=== PATIENT | female | born 1955 | race Caucasian/White ===

== ENCOUNTER → 2019-10-14 13:18 | Outpatient (BNVA) | payer BC, SELFPAY | PROVIDERS: Family Provider Family Medicine; PCP Family Medicine; Visit Provider Internal Medicine Rheumatology | DX: M06.4 Inflammatory polyarthropathy (principal); M15.4 Erosive (osteo)arthritis; Z79.899 Other long term (current) drug therapy | CPT/HCPCS: 36415; 82565; 84450 ==

== ENCOUNTER → 2019-10-14 13:40 | Outpatient (BNVA) | payer BC, SELFPAY | PROVIDERS: Family Provider Family Medicine; PCP Family Medicine; Visit Provider Internal Medicine Rheumatology | DX: M06.4 Inflammatory polyarthropathy (principal); M15.4 Erosive (osteo)arthritis; Z51.81 Encounter for therapeutic drug level monitoring; Z79.899 Other long term (current) drug therapy | CPT/HCPCS: 85025 ==

== ENCOUNTER 2019-11-10 09:51 | Outpatient (RCR) | payer BC, SELFPAY | END 2019-12-08 23:59 | disposition home or self-care (01) | LOC: SPT 09:51 | PROVIDERS: Family Provider Family Medicine; PCP Family Medicine; Referring Provider Family Medicine; Visit Provider Family Medicine | DX: M25.511 Pain in right shoulder (principal); M50.90 Cervical disc disorder, unspecified, unspecified cervical region; M17.9 Osteoarthritis of knee, unspecified | CPT/HCPCS: 97110; 97162 ==

== ENCOUNTER → 2020-02-24 14:03 | Outpatient (BNVA) | payer BC, SELFPAY | PROVIDERS: Family Provider Family Medicine; PCP Family Medicine; Visit Provider Internal Medicine Rheumatology | DX: Z79.899 Other long term (current) drug therapy (principal); M35.3 Polymyalgia rheumatica | CPT/HCPCS: 36415; 80076; 82565; 85025; 85651; 86140 ==

== ENCOUNTER → 2020-03-22 11:28 | Outpatient (BNVA) | payer BC, SELFPAY | PROVIDERS: Family Provider Family Medicine; PCP Family Medicine; Visit Provider Internal Medicine Rheumatology | DX: M19.90 Unspecified osteoarthritis, unspecified site (principal); Z87.39 Personal history of other diseases of the musculoskeletal system and connective tissue; Z79.899 Other long term (current) drug therapy; Z71.89 Other specified counseling | CPT/HCPCS: 99214 ==

== ENCOUNTER 2020-04-08 13:18 | Outpatient (CLI) | payer BC, SELFPAY ==
--- NOTE | 2020-04-08 13:00 | XR_ITS ---
WS: [id number] CHEST 2 VIEWS HISTORY: inflammatory arthritis COMPARISON: 05/18/2016 Lungs: Hyperinflated lungs with no pulmonary mass or pneumonia. Normal vasculature. No pulmonary nodu les. Cardiac size: Normal. Mediastinum/Aorta: Mild atherosclerosis aorta. Bones: Prior RIGHT reverse shoulder prosthesis. Normal appearance the distal clavicles. Mild increase in thoracic kyphosis. XR/XR chest 2V* [id number] IMPRESSION: Mild emphysema with no acute cardiopulmonary disease.
--- NOTE | 2020-04-08 13:30 | XR_ITS ---
WS: [id number] RIGHT KNEE: 3 VIEW(S) TECHNIQUE: AP, oblique(s) and lateral. HISTORY: inflammatory arthritis COMPARISON: 01/29/2018 No fracture or dislocation. Prior RIGHT knee arthroplasty. Prosthesis components are in good position alignment. No joint effusion. No soft tissue abnormality. XR/XR knee RT 3V* [id number] IMPRESSION: Status post RIGHT knee prosthesis with no complications evident.
--- NOTE | 2020-04-08 14:00 | XR_ITS ---
WS: [id number] RIGHT FOOT: 3 VIEW(S) TECHNIQUE: AP, oblique and lateral. HISTORY: inflammatory arthritis COMPARISON: None available. No acute fracture or dislocation. Normal tarsal/metatarsal alignment. No soft tissue abnormality or bone destruction. XR/XR foot RT min 3V* [id number] IMPRESSION: Normal RIGHT foot.
--- NOTE | 2020-04-08 14:30 | XR_ITS ---
WS: [id number] RIGHT HAND: 3 VIEW(S) TECHNIQUE: PA, oblique and lateral. HISTORY: inflammatory arthritis COMPARISON: 05/14/2013 Mixed erosive and productive changes noted involving the second through fourth DIP joints most signif icant. To a lesser extent there is involvement of the PIP joints. Similar changes were seen on the pr ior examination. Bone density is normal. There is mild soft tissue swelling increased soft tissue den sity surrounding the IP joints. XR/XR hand RT min 3V* [id number] IMPRESSION: Mixed bone changes involving the IP joints as described above. Most likely psor iatic arthritis.
--- NOTE | 2020-04-08 15:00 | XR_ITS ---
WS: [id number] LEFT FOOT: 3 VIEW(S) TECHNIQUE: AP, oblique and lateral. HISTORY: inflammatory arthritis COMPARISON: None available. No acute fracture or dislocation. Mild hallux valgus. Prior bunionectomy. Normal tarsal/metatarsal alignment. Hammertoe deformities. No soft tissue abnormality or bone destruction. XR/XR foot LT min 3V* [id number] IMPRESSION: 1. No erosions identified. 2. Mild hallux valgus first metatarsophalangeal joint.
--- NOTE | 2020-04-08 15:30 | XR_ITS ---
WS: [id number] LEFT HAND: 3 VIEW(S) TECHNIQUE: PA, oblique and lateral. HISTORY: inflammatory arthritis COMPARISON: 05/14/2013 No acute fracture or dislocation. Marked narrowing of the DIP joints and to a lesser extent the PIP joints. There is mixed erosive and productive changes. Mild soft tissue swelling and edema. No definite periostitis. Additional osteoart hritis at the first carpometacarpal joint. Narrowing of the distal radioulnar joint. XR/XR hand LT min 3V* [id number] IMPRESSION: 1. Suspect psoriatic arthritis involving the interphalangeal joints. 2. Osteoarthritis at the distal radioulnar joint and first carpometacarpal wily nt.
--- NOTE | 2020-04-08 16:00 | XR_ITS ---
WS: [id number] LEFT KNEE: 3 VIEW(S) TECHNIQUE: AP, oblique(s) and lateral. HISTORY: inflammatory arthritis COMPARISON: 01/29/2018 No fracture or dislocation. Mild narrowing of the lateral compartment. There are small marginal osteophytes. No fractures or loos e body. No erosions. No joint effusion. No soft tissue abnormality. XR/XR knee LT 3V* [id number] IMPRESSION: Mild lateral compartment osteoarthritis.
== END 2020-04-08 13:19 | disposition home or self-care (01) ==
PROVIDERS: Family Provider Family Medicine; PCP Family Medicine; Visit Provider Internal Medicine Rheumatology
DX: M19.90 Unspecified osteoarthritis, unspecified site (principal); M17.12 Unilateral primary osteoarthritis, left knee; M19.042 Primary osteoarthritis, left hand; M20.12 Hallux valgus (acquired), left foot; M25.571 Pain in right ankle and joints of right foot; Z96.651 Presence of right artificial knee joint; J43.8 Other emphysema
CPT/HCPCS: 71046; 73130; 73562; 73630

== ENCOUNTER → 2020-06-14 08:59 | Outpatient (BNVA) | payer BC, SELFPAY | PROVIDERS: Family Provider Family Medicine; PCP Family Medicine; Visit Provider Internal Medicine Rheumatology | DX: Z79.899 Other long term (current) drug therapy (principal) | CPT/HCPCS: 36415; 80076; 82565; 85025; 85651; 86140 ==

== ENCOUNTER → 2020-09-07 10:57 | Outpatient (BNVA) | payer MEDICARE, BC, SELFPAY | PROVIDERS: Family Provider Family Medicine; PCP Family Medicine; Visit Provider Internal Medicine Rheumatology | DX: Z79.899 Other long term (current) drug therapy (principal) | CPT/HCPCS: 36415; 80076; 82565; 85025; 85651; 86140 ==

== ENCOUNTER → 2020-09-12 10:43 | Outpatient (BNVA) | payer MEDICARE, BC, SELFPAY | PROVIDERS: Family Provider Family Medicine; PCP Family Medicine; Visit Provider Internal Medicine Rheumatology | DX: Z87.39 Personal history of other diseases of the musculoskeletal system and connective tissue (principal); M15.9 Polyosteoarthritis, unspecified; M15.4 Erosive (osteo)arthritis; Z79.899 Other long term (current) drug therapy; G56.03 Carpal tunnel syndrome, bilateral upper limbs; M47.22 Other spondylosis with radiculopathy, cervical region; Z87.891 Personal history of nicotine dependence | CPT/HCPCS: 99214 ==

== ENCOUNTER 2020-12-20 15:24 | Outpatient (CLI) | payer MEDICARE, BC, SELFPAY ==
--- NOTE | 2020-12-20 15:40 | CT_ITS ---
WS: [id number] CT SINUSES TECHNIQUE: Noncontrast CT of the paranasal sinuses with coronal and sagittal reformatted images. CLINICAL INFORMATION: CHRONIC SINUSITIS COMPARISON: None. DLP: 354.[address] scans at [facility] use at least one of these dose optimization techniques: automat ed exposure control; mA and/or kV adjustment per patient size (includes targeted exams where dose is matched to clinical indication); or iterative reconstruction. FINDINGS: Mastoid air cells are well aerated. Paranasal sinuses are well aerated. Mild mucosal thickening in th e ethmoid air cells. Frontal sinuses are well aerated. Frontal sinuses are patent. Sphenoid sinuses a re well aerated. Sphenoid ostia are patent. Maxillary sinuses are well aerated. Mild narrowing of the ostiomeatal units bilaterally which are patent. Right to left nasal septal hollis ation measuring 6 mm. Normal sella. Normal craniocervical junction. Mild small vessel changes partial ly visualized intracranial contents. Mild parenchymal volume loss. Normal parapharyngeal fat. CT/CT sinus wo con* [id number] IMPRESSION: 1. Mild right to left nasal septal deviation measuring 6 mm. 2. Mild narrowing of the ostiomeatal units bilaterally which are patent. 3. Mastoid air cells well aerated. 4. Mild mucosal thickening in the ethmoid air cells. 5. Paranasal sinuses are well aerated.
== END 2020-12-20 15:25 | disposition home or self-care (01) ==
LOC: RADWPI 15:31
PROVIDERS: PCP Family Medicine; Visit Provider Family Medicine
DX: J32.9 Chronic sinusitis, unspecified (principal); J34.2 Deviated nasal septum
CPT/HCPCS: 70486

== ENCOUNTER 2020-12-28 14:23 | Outpatient (CLI) | payer MEDICARE, BC, SELFPAY ==
--- NOTE | 2020-12-28 14:35 | CT_ITS ---
WS: [id number] CT HEAD WITH AND WITHOUT CONTRAST HISTORY: ATYPICAL HEADACHE TECHNIQUE: Noncontrast 2.5 mm axial images obtained from the vertex to the skull base. Additional ariadna ging performed at 2.5 mm axial images status post IV contrast. Bone and soft tissue windows are revie wed. All CT scans at [facility] use at least one of these dose optimization techniques: a utomated exposure control; mA and/or kV adjustment per patient size (includes targeted exams where do se is matched to clinical indication); or iterative reconstruction. CONTRAST: Omnipaque 300; 95 mL IV. DLP: 1851.82 mGycm COMPARISON: None available. No acute intracranial hemorrhage, edema or midline shift. No significant atrophy or prior infarcts or chronic microvascular disease. No enhancing mass or vascular malformations identified. Dural venous sinuses are normally enhancing. Visualized [place] is unremarkable. Paranasal sinuses as visualized: Clear. Mastoid air cells: Clear. Calvarium and scalp: Intact. Moderate amount of calcified plaque within the cavernous portions of the intracranial carotid arterie s. CT/CT head wo/w con [id number] IMPRESSION: 1. No acute intracranial hemorrhage or mass. 2. Very minimal cerebral atrophy. 3. Moderate intracranial carotid artery atherosclerosis. 4. No sinus disease.
[2020-12-28 14:56] LABS: Blood Urea Nitrogen 13 mg/dL (8-23); Glomerular Filtration Rate 123.8 mL/min (90-130)
[2020-12-28] MEDS: iohexol 300 mg/mL 100 mL Btl IV (15:02)
== END 2020-12-28 14:24 | disposition home or self-care (01) ==
PROVIDERS: PCP Family Medicine; Visit Provider Family Medicine
DX: R51.9 Headache, unspecified (principal); I65.29 Occlusion and stenosis of unspecified carotid artery
CPT/HCPCS: 70470; 82565; 84520; Q9967

== ENCOUNTER 2021-01-03 11:48 | Outpatient (CLI) | payer MEDICARE, BC, SELFPAY ==
[2021-01-03 12:22] LABS: Basophils % 0.3 %; Eosinophils # 0.1 10^3/uL (0.0-0.8); Eosinophils % 1.5 %; Hematocrit 37.3 % (37.0-47.0); Hemoglobin 12.2 g/dL (11.5-15.3); Lymphocytes # 1.8 10^3/uL (0.8-4.8); Lymphocytes % 27.8 %; Mean Corpuscular HGB Conc 32.7 g/dL (30.0-36.0); Mean Corpuscular Hemoglobin 30.7 pg (28.0-34.0); Mean Platelet Volume 8.3 fL (7.4-10.4); Monocytes # 0.4 10^3/uL (0.2-0.9); Monocytes % 6.4 %; Neutrophils # 4.18 10^3/uL (1.8-7.7); Neutrophils % 63.4 %; Nucleated Red Blood Cells % 0 %; Platelet Count 274 10^3/cmm (130-400); Red Blood Count 3.97 10^6/uL (4.1-5.3); Red Cell Distribution Width 13.2 % (12.1-15.1); White Blood Count 6.6 10^3/uL (4.0-10.0)
[2021-01-03 12:40] LABS: Alanine Aminotransferase 16 U/L (0-33); Albumin Level 4.4 g/dL (3.5-5.2); Alkaline Phosphatase 85 IU/L (35-105); Aspartate Amino Transferase 22 U/L (0-32); C Reactive Protein 4.3 mg/L (0.0-4.9); Glomerular Filtration Rate 123.8 mL/min (90-130); Total Bilirubin 0.2 mg/dL (0.15-1.2); Total Protein 6.4 g/dL (6.6-8.7)
== END 2021-01-03 11:49 ==
LOC: LAB 11:54
PROVIDERS: PCP Family Medicine; Visit Provider Internal Medicine Rheumatology
DX: M19.90 Unspecified osteoarthritis, unspecified site (principal); Z79.899 Other long term (current) drug therapy
CPT/HCPCS: 36415; 80076; 82565; 85025; 86140

== ENCOUNTER → 2021-01-09 13:38 | Outpatient (BNVA) | payer MEDICARE, BC, SELFPAY | PROVIDERS: PCP Family Medicine; Visit Provider Internal Medicine Rheumatology | DX: Z87.39 Personal history of other diseases of the musculoskeletal system and connective tissue (principal); M15.4 Erosive (osteo)arthritis; M47.22 Other spondylosis with radiculopathy, cervical region; Z79.899 Other long term (current) drug therapy; G56.03 Carpal tunnel syndrome, bilateral upper limbs; Z87.891 Personal history of nicotine dependence | CPT/HCPCS: 99214 ==

== ENCOUNTER → 2021-05-03 10:57 | Outpatient (BNVA) | payer MEDICARE, BC, SELFPAY | PROVIDERS: PCP Family Medicine; Visit Provider Internal Medicine Rheumatology | DX: M19.90 Unspecified osteoarthritis, unspecified site (principal); Z71.89 Other specified counseling; Z79.899 Other long term (current) drug therapy | CPT/HCPCS: 36415; 80076; 82565; 85025; 86140 ==

== ENCOUNTER → 2021-05-10 13:29 | Outpatient (BNVA) | payer MEDICARE, BC, SELFPAY | PROVIDERS: PCP Family Medicine; Visit Provider Internal Medicine Rheumatology | DX: Z87.39 Personal history of other diseases of the musculoskeletal system and connective tissue (principal); M15.4 Erosive (osteo)arthritis; M47.22 Other spondylosis with radiculopathy, cervical region; Z79.899 Other long term (current) drug therapy; G56.03 Carpal tunnel syndrome, bilateral upper limbs; Z87.891 Personal history of nicotine dependence | CPT/HCPCS: 99214 ==

== ENCOUNTER → 2021-09-12 12:55 | Outpatient (BNVA) | payer MEDICARE, BC, SELFPAY | PROVIDERS: PCP Family Medicine; Visit Provider Internal Medicine Rheumatology | DX: Z87.39 Personal history of other diseases of the musculoskeletal system and connective tissue (principal); M15.4 Erosive (osteo)arthritis; Z79.899 Other long term (current) drug therapy; G56.03 Carpal tunnel syndrome, bilateral upper limbs; Z96.651 Presence of right artificial knee joint; Z71.89 Other specified counseling; Z87.891 Personal history of nicotine dependence | CPT/HCPCS: 99214 ==

== ENCOUNTER → 2022-03-15 10:27 | Outpatient (BNVA) | payer MEDICARE, BC, SELFPAY | PROVIDERS: PCP Family Medicine; Visit Provider Internal Medicine Rheumatology | DX: M15.4 Erosive (osteo)arthritis (principal); M47.22 Other spondylosis with radiculopathy, cervical region; Z87.39 Personal history of other diseases of the musculoskeletal system and connective tissue; Z79.899 Other long term (current) drug therapy; G56.03 Carpal tunnel syndrome, bilateral upper limbs | CPT/HCPCS: 36415; 80076; 82565; 85025; 86140; 99214 ==

== ENCOUNTER 2022-06-26 11:57 | Outpatient (CLI) | payer MEDICARE, BC, SELFPAY ==
[2022-06-26 13:02] LABS: Basophils % 0.4 %; Eosinophils # 0.2 10^3/uL (0.0-0.8); Hematocrit 37.2 % (37.0-47.0); Hemoglobin 12.4 g/dL (11.5-15.3); Lymphocytes # 2.1 10^3/uL (0.8-4.8); Lymphocytes % 27.5 %; Mean Corpuscular HGB Conc 33.3 g/dL (30.0-36.0); Mean Corpuscular Volume 96.1 fl (81-99); Mean Platelet Volume 8.2 fL (7.4-10.4); Monocytes # 0.4 10^3/uL (0.2-0.9); Monocytes % 5.6 %; Neutrophils # 4.78 10^3/uL (1.8-7.7); Nucleated Red Blood Cells % 0 %; Platelet Count 290 10^3/cmm (130-400); Red Blood Count 3.87 10^6/uL (4.1-5.3); Red Cell Distribution Width 14.1 % (12.1-15.1); White Blood Count 7.5 10^3/uL (4.0-10.0)
[2022-06-26 13:25] LABS: Alanine Aminotransferase 21 U/L (0-33); Albumin Level 4.1 g/dL (3.5-5.2); Alkaline Phosphatase 96 U/L (35-105); Aspartate Amino Transferase 24 U/L (0-32); Globulin 2.8 g/dL (1.3-4.6); Glomerular Filtration Rate 159.7 mL/min (90-130); Total Bilirubin 0.2 mg/dL (0.15-1.2); Total Protein 6.9 g/dL (6.6-8.7)
== END 2022-06-26 11:58 | disposition home or self-care (01) ==
LOC: LAB 12:09
PROVIDERS: PCP Family Medicine; Visit Provider Internal Medicine Rheumatology
DX: M19.90 Unspecified osteoarthritis, unspecified site (principal); Z79.899 Other long term (current) drug therapy
CPT/HCPCS: 36415; 80076; 82565; 85025; 86140

== ENCOUNTER → 2022-07-10 09:57 | Outpatient (BNVA) | payer MEDICARE, BC, SELFPAY | PROVIDERS: PCP Family Medicine; Visit Provider Internal Medicine Rheumatology | DX: M15.4 Erosive (osteo)arthritis (principal); Z87.39 Personal history of other diseases of the musculoskeletal system and connective tissue; Z71.89 Other specified counseling; Z20.822 Contact with and (suspected) exposure to COVID-19; G56.03 Carpal tunnel syndrome, bilateral upper limbs; M47.22 Other spondylosis with radiculopathy, cervical region; Z96.651 Presence of right artificial knee joint; Z96.611 Presence of right artificial shoulder joint | CPT/HCPCS: 99214 ==

== ENCOUNTER 2022-07-26 11:11 | Outpatient (CLI) | payer MEDICARE, BC, SELFPAY ==
--- NOTE | 2022-07-26 11:23 | XR_ITS ---
WS: [id number] Exam: XR lumbar spine min 4V [id number] Date/Time of Exam: 07/26/2022 11:23 AM Reason For Exam: VERTEBROGENIC LOW BACK PAIN No acute fracture or dislocation noted. Slight degenerative anterolisthesis of L5 on S1. Facet arthro alejandra at L4-5 and L5-S1. Mild dextroscoliosis at the thoracolumbar junction. Degenerative disc change at L1-2 with spondylosis of L1 and L2. XR/XR lumbar spine min 4V [id number] IMPRESSION: 1. No acute fracture or malalignment. 2. Slight degenerative anterolisthesis of L5 on S1. 3. Degenerative changes as detailed above. Mild scoliosis.
== END 2022-07-26 11:12 | disposition home or self-care (01) ==
PROVIDERS: PCP Family Medicine; Visit Provider Anesthesiology Pain Medicine
DX: M54.51 Vertebrogenic low back pain (principal); M47.896 Other spondylosis, lumbar region
CPT/HCPCS: 72110

== ENCOUNTER 2022-10-04 12:32 | Outpatient (CLI) | payer MEDICARE, BC, SELFPAY ==
--- NOTE | 2022-10-04 13:00 | MR_ITS ---
WS: [id number] MRI LEFT SHOULDER HISTORY: LEFT shoulder pain for several months. Prior surgery. COMPARISON: None available. TECHNIQUE: Multiplanar sequences of the shoulder joint are submitted. Moderate AC joint narrowing and arthropathy. Loss of the normal articulation with small osteophytes a nd soft tissue hypertrophy. Downsloping acromion with mild subacromial impingement. Small amount of f luid in the subacromial and subdeltoid bursa. No os acromion. Biceps tendon is not identified in the bicipital groove. There is increase fluid in the expected location of the tendon sheath. Moderately high riding humeral head. Severe glenohumeral joint narrowing and osteophytic ridging. Sub chondral cystic changes in the humeral head. Loss of cartilage surrounding the humeral head and gleno id. Moderate-sized joint effusion. Small loose bodies within the joint effusion. There is a large fluid gap in the expected location of the distal supraspinatus tendon. There is a la rge full-thickness tear with retraction of the tendon to the medial humeral head. Moderate atrophy of the supraspinatus muscle. Mild atrophy and edema within the subscapularis muscle. Subscapularis tend on is thickened from tendinopathy. Infraspinatus tendon appears intact. Intrasubstance degeneration in the labrum. Superior anterior labral signal abnormality is very suspic ious for labral tear. Micrometallic artifacts surrounding the shoulder from prior rotator cuff repair. There does appear to be at least one anchor in the humeral head. MR/MR shoulder LT wo con* [id number] IMPRESSION: 1. Complete tear supraspinatus tendon with retraction to the medial humeral he ad. Marked atrophy of the supraspinatus muscle. 2. Prior rotator cuff repair. There is at least one anchor within the humeral head and mitral metallic artifacts surrounding the shoulder. 3. Severe glenohumeral joint arthritis and moderate AC joint arthropathy. 4. High riding humeral head. 5. Marked osteophytic ridging around the humeral head with loss of cartilage. 6. Moderate-sized joint effusion with loose bodies. 7. Biceps tendon not identified in the bicipital groove. Dislocated versus tor n and retracted.
== END 2022-10-04 12:33 | disposition home or self-care (01) ==
LOC: RAD 12:32
PROVIDERS: PCP Family Medicine; Visit Provider Family Medicine
DX: M75.80 Other shoulder lesions, unspecified shoulder (principal)
CPT/HCPCS: 73221

== ENCOUNTER 2022-10-30 09:55 | Outpatient (CLI) | payer MEDICARE, BC, SELFPAY ==
[2022-10-30 10:25] LABS: Basophils % 0.3 %; Eosinophils # 0.2 10^3/uL (0.0-0.8); Eosinophils % 2.6 %; Hematocrit 38.8 % (37.0-47.0); Hemoglobin 12.8 g/dL (11.5-15.3); Lymphocytes # 1.9 10^3/uL (0.8-4.8); Mean Corpuscular Hemoglobin 31.4 pg (28.0-34.0); Mean Corpuscular Volume 95.1 fl (81-99); Mean Platelet Volume 8.2 fL (7.4-10.4); Monocytes # 0.4 10^3/uL (0.2-0.9); Neutrophils # 3.39 10^3/uL (1.8-7.7); Neutrophils % 58.6 %; Nucleated Red Blood Cells % 0 %; Platelet Count 252 10^3/cmm (130-400); Red Blood Count 4.08 10^6/uL (4.1-5.3); Red Cell Distribution Width 13.1 % (12.1-15.1); White Blood Count 5.8 10^3/uL (4.0-10.0)
[2022-10-30 10:44] LABS: Alanine Aminotransferase 17 U/L (0-33); Alkaline Phosphatase 97 U/L (35-105); Aspartate Amino Transferase 22 U/L (0-32); C Reactive Protein 5.4 mg/L (0.0-4.9); Globulin 2.7 g/dL (1.3-4.6); Glomerular Filtration Rate 123.1 mL/min (90-130); Total Bilirubin 0.2 mg/dL (0.15-1.2); Total Protein 6.7 g/dL (6.6-8.7)
== END 2022-10-30 09:56 | disposition home or self-care (01) ==
PROVIDERS: PCP Family Medicine; Visit Provider Internal Medicine Rheumatology
DX: Z87.39 Personal history of other diseases of the musculoskeletal system and connective tissue (principal); Z79.899 Other long term (current) drug therapy; M15.4 Erosive (osteo)arthritis; Z71.89 Other specified counseling; G56.03 Carpal tunnel syndrome, bilateral upper limbs; M47.22 Other spondylosis with radiculopathy, cervical region
CPT/HCPCS: 36415; 80076; 82565; 85025; 86140; 99214

== ENCOUNTER 2023-03-05 16:26 | Outpatient (RCR) | payer MEDICARE, BC, SELFPAY | END 2023-03-08 23:59 | disposition home or self-care (01) | LOC: SPT 16:26 | PROVIDERS: PCP Family Medicine; Visit Provider Orthopaedic Surgery | DX: Z47.89 Encounter for other orthopedic aftercare (principal) | CPT/HCPCS: 97110; 97161 ==

== ENCOUNTER 2023-03-09 06:00 | Outpatient (RCR) | payer MEDICARE, BC, SELFPAY | END 2023-04-08 23:59 | disposition home or self-care (01) | LOC: SPT 06:00 | PROVIDERS: PCP Family Medicine; Visit Provider Orthopaedic Surgery | DX: Z47.89 Encounter for other orthopedic aftercare (principal) | CPT/HCPCS: 97110; 97150 ==

== ENCOUNTER 2023-04-09 06:00 | Outpatient (RCR) | payer MEDICARE, BC, SELFPAY | END 2023-05-09 23:59 | disposition home or self-care (01) | LOC: SPT 06:00 | PROVIDERS: PCP Family Medicine; Visit Provider Orthopaedic Surgery | DX: Z47.1 Aftercare following joint replacement surgery (principal); Z96.612 Presence of left artificial shoulder joint | CPT/HCPCS: 97110 ==

== ENCOUNTER → 2024-03-18 08:14 | Outpatient (BNVA) | payer MEDICARE, BC, SELFPAY | PROVIDERS: PCP Family Medicine; Visit Provider Specialist | DX: M25.561 Pain in right knee (principal); G89.29 Other chronic pain; Z96.651 Presence of right artificial knee joint | CPT/HCPCS: 73560; 73565; 99204 ==

== ENCOUNTER 2024-04-21 07:37 | Outpatient (CLI) | payer MEDICARE, BC, SELFPAY ==
--- NOTE | 2024-04-21 08:00 | NM_ITS ---
WS: [id number] THREE-PHASE BONE SCAN HISTORY: right knee pain COMPARISON: Radiograph 03/18/2024 Patient is is injected with 25.1 mCi Tc99m HDP intravenously. Immediate angiographic phase imaging is performed over the area of concern. Static blood pool imaging also performed. Two-hour whole-body sc intigrams performed in anterior and posterior projections. Additional large field of view imaging sub mitted as necessary. Three-phase bone scan is centered over the knees. On the immediate angiographic imaging there is symm etric uptake surrounding the knees. Photopenic defect noted involving the RIGHT knee secondary to the arthroplasty. Blood pool imaging is normal. No cellulitis. There is mild increased uptake along the RIGHT tibial plateau at the site of the arthroplasty articul ating with the bone. Slightly greater uptake along the medial tibial plateau arthroplasty interface. There is no loosening identified radiographically. Focal intermediate uptake involving the lateral LEFT knee. This corresponds to joint space narrowing and bony sclerosis on the radiograph. Smaller amount of increased uptake along the medial tibial plat eau. Bilateral AC joint arthritis. Normal soft tissue uptake. Facet joint arthritis on the RIGHT at L5-S1. NM/NM bone 3 phase [id number] IMPRESSION: 1. Moderate amount of increased uptake along the interface of the RIGHT tibial plateau with the arthroplasty device. This may indicate mild loosening. There is no osteomyelitis. No loosening is identified radiographically. 2. Moderate osteoarthritis involving the lateral compartment of the LEFT knee.
== END 2024-04-21 07:38 | disposition home or self-care (01) ==
PROVIDERS: PCP Electrodiagnostic Medicine; Visit Provider Specialist
DX: Z96.651 Presence of right artificial knee joint (principal); Z98.890 Other specified postprocedural states; M17.12 Unilateral primary osteoarthritis, left knee
CPT/HCPCS: 78315; A9561

== ENCOUNTER → 2024-05-13 08:11 | Outpatient (BNVA) | payer MEDICARE, BC, SELFPAY | PROVIDERS: PCP Electrodiagnostic Medicine; Visit Provider Specialist | DX: M17.11 Unilateral primary osteoarthritis, right knee (principal); Z96.651 Presence of right artificial knee joint | CPT/HCPCS: 99214 ==

== ENCOUNTER → 2024-06-05 10:15 | Outpatient (BNVA) | payer MEDICARE, BC, SELFPAY | PROVIDERS: PCP Electrodiagnostic Medicine; Visit Provider Specialist | DX: Z96.651 Presence of right artificial knee joint (principal) | CPT/HCPCS: 20605; 87070; 87075; 87205 ==

== ENCOUNTER → 2024-07-08 15:11 | Outpatient (BNVA) | payer MEDICARE, BC, SELFPAY | PROVIDERS: PCP Electrodiagnostic Medicine; Visit Provider Specialist | DX: Z96.651 Presence of right artificial knee joint (principal); M17.12 Unilateral primary osteoarthritis, left knee | CPT/HCPCS: 99213 ==

== ENCOUNTER 2024-12-02 11:05 | Outpatient (CLI) | payer MEDICARE, SELFPAY ==
--- NOTE | 2024-12-02 11:07 | MM_ITS ---
WS: [id number] BILATERAL SCREENING DIGITAL BREAST MAMMOGRAPHY WITH GINNY DISPLACEMENT VIEWS. CAD PERFORMED. HISTORY: SCREENING COMPARISON: 03/07/2016 Bilateral craniocaudal and mediolateral oblique views are performed with tomosynthesis and SM. Ginny displacement views in CC and MLO projection also performed. Breasts composition: There are scattered areas of fibroglandular density. Benign calcifications in each breast. Retropectoral implants are intact. No suspicious grouping of calcifications or mass. MM/MM scr BI tomosynthesis [id number] IMPRESSION: BI-RADS: 2 - Benign. FOLLOW-UP: 1 Year Follow-up
== END 2024-12-02 11:06 | disposition home or self-care (01) ==
LOC: RAD 11:06
PROVIDERS: PCP Electrodiagnostic Medicine; Visit Provider Electrodiagnostic Medicine
DX: Z12.31 Encounter for screening mammogram for malignant neoplasm of breast (principal); R92.323 Mammographic fibroglandular density, bilateral breasts; R92.1 Mammographic calcification found on diagnostic imaging of breast; Z98.82 Breast implant status
CPT/HCPCS: 77063; 77067

== ENCOUNTER → 2025-03-05 10:04 | Outpatient (BNVA) | payer MEDICARE, SELFPAY | PROVIDERS: PCP Electrodiagnostic Medicine; Visit Provider Physician Assistant | DX: M17.12 Unilateral primary osteoarthritis, left knee (principal); Z96.651 Presence of right artificial knee joint; Z46.89 Encounter for fitting and adjustment of other specified devices | CPT/HCPCS: 73560; 73565 ==

== ENCOUNTER 2025-03-05 11:52 | Outpatient (CLI) | payer MEDICARE, SELFPAY | END 2025-03-05 11:53 | disposition home or self-care (01) | LOC: SPT 11:53 | PROVIDERS: PCP Electrodiagnostic Medicine; Visit Provider Physician Assistant | DX: Z46.89 Encounter for fitting and adjustment of other specified devices (principal); M17.12 Unilateral primary osteoarthritis, left knee | CPT/HCPCS: L1851 ==

== ENCOUNTER → 2025-04-07 08:06 | Outpatient (BNVA) | payer MEDICARE, SELFPAY | PROVIDERS: PCP Electrodiagnostic Medicine; Visit Provider Student in an Organized Health Care Education/Training Program | DX: M76.31 Iliotibial band syndrome, right leg (principal); M17.11 Unilateral primary osteoarthritis, right knee; Z96.651 Presence of right artificial knee joint | CPT/HCPCS: 73560; 73565; 99213 ==

== ENCOUNTER 2025-04-07 10:22 | Outpatient (CLI) | payer MEDICARE, SELFPAY | END 2025-04-07 10:23 | disposition home or self-care (01) | LOC: SPT 10:22 | PROVIDERS: PCP Electrodiagnostic Medicine; Visit Provider Student in an Organized Health Care Education/Training Program | DX: Z46.89 Encounter for fitting and adjustment of other specified devices (principal); M17.11 Unilateral primary osteoarthritis, right knee | CPT/HCPCS: L1812 ==

== ENCOUNTER → 2025-07-07 10:25 | Outpatient (BNVA) | payer MEDICARE, SELFPAY | PROVIDERS: PCP Electrodiagnostic Medicine; Visit Provider Specialist | DX: Z47.89 Encounter for other orthopedic aftercare (principal); Z96.651 Presence of right artificial knee joint | CPT/HCPCS: 73560; 73565; 99214 ==

== ENCOUNTER 2025-07-14 08:29 | Outpatient (CLI) | payer MEDICARE, BC, SELFPAY ==
--- NOTE | 2025-07-14 08:45 | NMR_ITS ---
PROCEDURE INFORMATION: Exam: UT Bone and/or Joint, 3 Phase Exam date and time: 07/14/2025 8:38 AM Age: 69 years old Clinical indication: Bone pain; Prior surgery; Surgery date: 6+ months; Surgery type: Right knee replaced; Pain in right knee- right knee has been replaced. Erosive osteoarthritis of both hands TECHNIQUE: Imaging protocol: Nuclear 3 phase bone scan was obtained. Views: Frontal and posterior Radiopharmaceutical: 25.9 mCi Tc-99m HDP (Oxidronate), IV. Time of imaging post radiopharmaceutical administration: 2 hours COMPARISON: No relevant prior studies available. FINDINGS: Skeleton: A right knee arthroplasty is identified. On delayed images there is increased uptake along the medial right tibial plateau and tip of the right tibial peg, suggesting loosening. There is diffuse joint space narrowing and increased tracer activity affecting the left knee, consistent with degenerative arthropathy. Increased tracer activity is also identified in the right 1st carpometacarpal articulation. This is most consistent with degenerative arthropathy. Soft tissues: Unremarkable. NM/NM bone 3 phase [id number] IMPRESSION: 1. Findings suggest loosening of the tibial component of the right knee arthroplasty. 2. Advanced degenerative arthropathy of the left knee with lateral greater than medial compartment increased tracer activity. 3. Degenerative arthropathy, right 1st carpometacarpal articulation.
== END 2025-07-14 08:30 | disposition home or self-care (01) ==
PROVIDERS: PCP Electrodiagnostic Medicine; Visit Provider Specialist
DX: Z96.651 Presence of right artificial knee joint (principal); M25.561 Pain in right knee; M19.042 Primary osteoarthritis, left hand; M19.041 Primary osteoarthritis, right hand; T84.032A Mechanical loosening of internal right knee prosthetic joint, initial encounter; X58.XXXA Exposure to other specified factors, initial encounter; M17.12 Unilateral primary osteoarthritis, left knee; M18.11 Unilateral primary osteoarthritis of first carpometacarpal joint, right hand
CPT/HCPCS: 78315; A9561

== ENCOUNTER → 2025-07-21 14:47 | Outpatient (BNVA) | payer MEDICARE, BC, SELFPAY | PROVIDERS: PCP Electrodiagnostic Medicine; Visit Provider Specialist | DX: M17.11 Unilateral primary osteoarthritis, right knee (principal); Z96.651 Presence of right artificial knee joint | CPT/HCPCS: 99214 ==